=== PATIENT | male | born 1970 | race Asian ===

== ENCOUNTER 2021-08-04 08:48 | Emergency (ER) | payer MEDICAID, SELFPAY ==
--- NOTE | ~2021-08-04 | XR_ITS ---
EXAMINATION: CT BRAIN WITHOUT CONTRAST. LEFT SHOULDER. CHEST X-RAY. CLINICAL INFORMATION: Dizziness x 2 days. COMPARISON: None TECHNIQUE: 5 mm thin axial and reformatted 2 mm thin sagittal and coronal images of brain were obtained. Chest 2 views. Left shoulder 3 views. FINDINGS: BRAIN: There is no acute intra-axial, extra-axial bleed, masses or midline shift. There is a left anterior temporal lobe arachnoid cyst. The lateral ventricles are symmetrical in size and configuration without enlargement. There is no acute infarction evolution. No edema. Bone windows reveal no calvarial abnormality. No scalp soft tissue abnormality. Bilateral paranasal sinuses and mastoid air cells are well-aerated. CHEST: Both lungs are fairly well-expanded and clear of acute pneumonic process. Heart size and pulmonary vascularity is normal. No gross bony abnormality seen. LEFT SHOULDER: There is no visible acute fracture or dislocation. There is small enthesophyte along the lateral greater tuberosity. Mild reduction AC joint with periarticular spurring is noted. No soft tissue swelling seen. XR/XR shoulder LT min 2V IMPRESSION: No acute intracranial process seen except for left middle cranial fossa arachnoid cyst. Unremarkable chest x-ray. Mild arthritic changes left AC joint and enthesophyte along the lateral greater tuberosity.
--- NOTE | ~2021-08-04 | XR_ITS ---
EXAMINATION: CT BRAIN WITHOUT CONTRAST. LEFT SHOULDER. CHEST X-RAY. CLINICAL INFORMATION: Dizziness x 2 days. COMPARISON: None TECHNIQUE: 5 mm thin axial and reformatted 2 mm thin sagittal and coronal images of brain were obtained. Chest 2 views. Left shoulder 3 views. FINDINGS: BRAIN: There is no acute intra-axial, extra-axial bleed, masses or midline shift. There is a left anterior temporal lobe arachnoid cyst. The lateral ventricles are symmetrical in size and configuration without enlargement. There is no acute infarction evolution. No edema. Bone windows reveal no calvarial abnormality. No scalp soft tissue abnormality. Bilateral paranasal sinuses and mastoid air cells are well-aerated. CHEST: Both lungs are fairly well-expanded and clear of acute pneumonic process. Heart size and pulmonary vascularity is normal. No gross bony abnormality seen. LEFT SHOULDER: There is no visible acute fracture or dislocation. There is small enthesophyte along the lateral greater tuberosity. Mild reduction AC joint with periarticular spurring is noted. No soft tissue swelling seen. XR/XR chest 2V IMPRESSION: No acute intracranial process seen except for left middle cranial fossa arachnoid cyst. Unremarkable chest x-ray. Mild arthritic changes left AC joint and enthesophyte along the lateral greater tuberosity.
[2021-08-04 08:58] VITALS: BP 139/86; PULSE 60; RESP 18; TEMP 36.5; O2SAT 96
[2021-08-04 09:02] VITALS: BP 139/86; PULSE 61; RESP 16; TEMP 36.5; O2SAT 100; BMI 26.4
--- NOTE | 2021-08-04 09:28 | ECG_ITS ---
Test Reason : HEADACHE Blood Pressure : / mmHG Vent. Rate : 061 BPM Atrial Rate : 061 BPM P-R Int : 154 ms QRS Dur : 078 ms QT Int : 396 ms P-R-T Axes : 030 -08 039 degrees QTc Int : 398 ms Normal sinus rhythm Left axis deviation Otherwise normal ECG No previous ECGs available Referred By: Leann Chadwick Electronically Signed By:JACK BUTLER MD
--- NOTE | 2021-08-04 09:32 | ED_ITS ---
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 No nausea, vomiting, vision changes, ear pain or recent URI. No falls or injury. No weakness, numbness, tingling or incontinence. Patient tells me he did have radiation about 6 months ago in [place]. Also complaining of some left shoulder pain for several months. Patient tells me that he got a COVID vaccine on the same side and he feels like it may be related to that. No swelling, limited range of motion, redness or Related Data Previous Rx's Medication Instructions Recorded meclizine 25 mg tablet 25 mg PO TID PRN #14 tab 08/04/21 Allergies Allergy/AdvReac Type Severity Reaction Status Date / Time No Known Allergies Allergy Verified 08/04/21 09:28 Review of Systems Review of Systems: Yes all other systems are reviewed and are negative Constitutional: Constitutional: Reports no additional constitutional complaints, Denies body ache(s), Denies chills, Denies fever(s), Reports headache(s) and Denies weakness Eyes: Eyes: Reports no additional eye complaints and Denies change in vision ENT: Reports system reviewed and no additional complaints, except as documented, Reports dizziness, Reports headache(s), Denies nasal congestion, Denies nasal discharge and Denies neck pain Cardiovascular: Cardiovascular: Reports no additional cardiovascular complaints, Denies chest pain, Denies leg edema and Denies dyspnea Respiratory: Respiratory: Reports no additional respiratory complaints, Denies cough and Denies dyspnea Gastrointestinal: Gastrointestinal: Reports no additional gastrointestinal complaints, Denies abdominal pain, Denies diarrhea, Denies nausea and Denies vomiting Genitourinary: Genitourinary: Denies urinary incontinence Musculoskeletal: Musculoskeletal: Reports no additional musculoskeletal complaints, Denies back pain, Denies arthralgias, Denies joint swelling, Denies neck pain, Denies numbness and Denies tingling Integumentary/Breasts: Skin/Breast: Reports system reviewed and no additional complaints, except as docu and Denies rash Neurologic: Reports system reviewed and no additional complaints, except as documented, Denies Abnormal speech present, Reports dizziness, Reports headache(s), Denies numbness, Denies tingling and Denies weakness PMFSH Past Medical History Attestation statement: The following information was validated with the patient. Source: old records reviewed and nursing notes reviewed Medical History Throat cancer Social History Social History Advance Directives: No Advance Directives Information Provided: Yes Physical Exam Vital Signs: Vital Signs: Last Vital Signs Temp 97.7 F 08/04/21 09:02 Pulse 61 08/04/21 09:02 Resp 16 08/04/21 09:02 BP 139/86 08/04/21 09:02 Pulse Ox 100 08/04/21 09:02 Body Mass Index 26.4 Const: General: cooperative, healthy appearing, comfortable and no acute distress Orientation/consciousness: patient oriented x3 Limitations: no limitations HENMT: Head: Yes normal to inspection Ears: hearing grossly normal bilaterally and TM's normal bilaterally General nose exam: Normal external nose present Face and sinus: Yes normal facial exam Mouth: Normal oral and palatal mucosa present Throat: Yes posterior oropharynx normal, Yes tonsils normal and Yes uvula midline Eyes: General: appearance normal, both eyes and all related structures Pupils: Equal, round and reactive pupils present Neck: Neck: Yes normal visual inspection, Yes full ROM, Yes no lymphadenopathy and Yes no meningeal signs Chest: Chest palpation & inspection: normal inspection of the chest Resp: Effort & Inspection: normal respiratory effort Auscultation: clear to auscultation bilaterally Cardio: Rate: regular rate Rhythm: regular rhythm Peripheral pulses: Peripheral pulses 2+ throughout GI: Inspection: Yes normal to inspection Palpation (GI): Soft to palpation and nontender Auscultation: normal bowel sounds Back/Spine/Pelvis: Thoracic/Lumbar Spine: thoracic and lumbar spine normal to inspection Skin: General skin exam: no rashes or lesions noted Neuro: General: patient oriented x3, no meningeal signs, no focal motor deficits and normal sensation to monofilament Cranial nerves: Yes CN's II-XII intact bilaterally, Yes Equal, round and reactive pupils present, Yes Bilaterally intact EOM present, Yes Nystagmus not present, Yes Normal facial strength present and Yes Midline tongue present Cognition (Neuro): normal cognition Speech: No Abnormal speech present Gait exam (Neuro): Normal gait present Motor exam (neuro): 5/5 motor strength present throughout Sensory Exam: Normal double simultaneous stimulation for sensation Deep tendon reflexes (DTR's): Right patellar reflex intensity grade: 2+ and Left patellar reflex intensity grade: 2+ Coordination: [id number] test normal, [id number] test normal and tandem gait normal Extrem: Other: Tenderness to the left proximal humerus which is worsened with abduction of the arm. No warmth, redness with full range of motion of the joint General: Yes normal to inspection, Yes no pedal edema and Yes no calf tenderness NIH Stroke Scale Internal: Initial- Upon Arrival Level of Consciousness: Alert Level of Consciousness Questions: Answers both questions correctly Level of Consciousness Commands: Performs both tasks correctly Best Gaze: Normal Visual: No visual loss Facial Palsy: Normal Motor Arm (Right): No drift Motor Arm (Left): No drift Motor Leg (Right): No drift Motor Leg (Left): No drift Limb Ataxia: Absent Sensory: Normal Best Language: No aphasia Dysarthia: Normal Extinction and Inattention: No abnormality Score: 0 Course Course Course Narrative: 50 yo male with with a past medical history of larynx cancer status post radiation about 6 months ago in [place] here with complaints of feeling of the room spinning with a generalized headache for 2 days. Vitals are stable on arrival. Normal neuro exam. ? Vertigo. Due to history of cancer will check CT head, labs, EKG, orthostatics. Give p.o. meclizine and reassess 1159-labs unremarkable.. CT head normal. EKG shows no ischemic changes. Patient feels all symptoms are resolved after receiving a dose of meclizine and being monitored for 1 hour in the emergency department. Likely vertigo. 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 Reviewed worrisome signs and symptoms of when to return to the emergency department. Comfortable discharge home. MDM - Headache MDM Narrative Medical decision making narrative: Vertigo, cerebellar infarct, ich Medical Records Attestation: I reviewed the patient's medical records. Lab Data Attestation: I reviewed the patient's lab results. Result diagrams: 08/04/21 10:24 08/04/21 10:24 Labs: Lab Results 08/04/21 08/04/21 08/04/21 Range/Units 10:24 10:24 10:24 WBC 3.3 L (4.8-10.8) X10*3/uL RBC 6.83 H (4.60-5.80) X10*6/uL Hgb 12.7 L (14.0-18.0) g/dl Hct 41.3 L (42-52) % MCV 60.5 L (80-98) fL MCH 18.6 L (27.0-33.0) pg MCHC 30.8 L (31.0-36.0) g/dl RDW 17.5 H (11.0-16.0) % Plt Count 250 (160-400) X10*3/uL MPV 9.7 (9.4-12.4) fL Immature Gran % (Auto) 0.3 (0.0-0.4) % Neut % (Auto) 54.7 (45-73) % Lymph % (Auto) 32.4 (20-40) % [place] % (Auto) 9.2 (2-11) % Eos % (Auto) 2.8 (0-4) % Baso % (Auto) 0.6 (0-2) % Lymph # (Auto) 1.1 L (1.2-4.9) X10*3/uL [place] # (Auto) 0.3 (0.1-1.2) X10*3/uL Eos # (Auto) 0.1 (0.0-0.4) X10*3/uL Baso # (Auto) 0.0 (0.0-0.2) X10*3/uL Abs Immat Gran (auto) 0.01 (0.00-0.03) X10*3/uL Absolute Neuts (auto) 1.8 L (2.0-8.3) X10*3/uL Absolute Nucleated RBC 0.000 (0.0-0.012) X10*3/uL Nucleated RBC % (auto) 0.0 (0.0-0.2) /100WBC Sodium 135 (135-145) mmol/L Potassium 4.1 (3.3-5.1) mmol/L Chloride 102 (96-108) mmol/L Carbon Dioxide 29 (22-29) mmol/L Anion Gap 8 L (12-20) BUN 11 (9-16) mg/dL Creatinine 0.93 (0.5-1.4) mg/dL Estim Creat Clear Calc 89.8 Estimated GFR > 60 Random Glucose 256 H (60-115) mg/dL Calcium 8.9 (8.4-10.2) mg/dL Magnesium 2.0 (1.6-2.6) mg/dL Total Bilirubin 0.7 (0.0-1.0) mg/dL Direct Bilirubin 0.3 (0.0-0.5) mg/dL AST 12 (5-37) U/L ALT 17 (0-40) U/L Alkaline Phosphatase 57 (39-117) U/L Troponin I High Sens < 3.5 (<3.5-35.0) ng/L Total Protein 7.3 (6.5-8.0) g/dL Albumin 4.3 (3.5-5.0) g/dL Imaging Data CT scan - head: Attestation: I personally reviewed and interpreted this imaging study as follows: Radiologist's impression: BRAIN: There is no acute intra-axial, extra- axial bleed, masses or midline shift. There is a left anterior temporal lobe arachnoid cyst. The lateral ventricles are symmetrical in size and configuration without enlargement. There is no acute infarction evolution. No edema. Bone windows reveal no calvarial abnormality. No scalp soft tissue abnormality. Bilateral paranasal sinuses and mastoid air cells are well-aerated. Chest x-ray: Attestation: I personally reviewed and interpreted this imaging study as follows: Radiologist's impression: CHEST: Both lungs are fairly well-expanded and clear of acute pneumonic process. Heart size and pulmonary vascularity is normal. No gross bony abnormality seen. left shoulder: Attestation: I personally reviewed and interpreted this imaging study as follows: Radiologist's impression: LEFT SHOULDER: There is no visible acute fracture or dislocation. There is small enthesophyte along the lateral greater tuberosity. Mild reduction AC joint with periarticular spurring is noted. No soft tissue swelling seen. ECG Data Attestation: I personally reviewed and interpreted this ECG as follows: ECG interpretation date: 08/04/21 ECG interpretation time: 09:56 Interpretation: Sinus rhythm with a rate of 61, normal FL, normal QRS, normal QT Discharge Plan Discharge Clinical Impression: Vertigo, Arthritis of shoulder region, left Patient Disposition: Home, Self-Care Instructions: Vertigo (ED), Arthritis (ED) Additional Instructions: Blood work and CT scan normal You received your 1st dose of meclizine in the emergency department with improvement Follow-up with your primary care Prescriptions: New meclizine 25 mg tablet 25 mg PO TID PRN (Reason: dizziness) Qty: 14 RF: 0 Interventions: ED Discharge Assessment Last Done: 08/04/21 12:16 Discharge Date/Time: 08/04/21 12:16
[2021-08-04 10:29] LABS: MANUAL DIFF FLAG NO
[2021-08-04 10:31] LABS: Basophils Percent Auto 0.6 % (0-2); Eosinophils Absolute Auto 0.1 X10*3/uL (0.0-0.4); Eosinophils Percent Auto 2.8 % (0-4); Hematocrit 41.3 % (42-52); Hemoglobin 12.7 g/dl (14.0-18.0); Imm Gran Abs Auto 0.01 X10*3/uL (0.00-0.03); Imm Gran Pct Auto 0.3 % (0.0-0.4); Lymphocytes Absolute Auto 1.1 X10*3/uL (1.2-4.9); Lymphocytes Percent Auto 32.4 % (20-40); Mean Corpuscular HGB Conc 30.8 g/dl (31.0-36.0); Mean Corpuscular Hemoglobin 18.6 pg (27.0-33.0); Mean Platelet Volume 9.7 fL (9.4-12.4); Monocytes Absolute Auto 0.3 X10*3/uL (0.1-1.2); Monocytes Percent Auto 9.2 % (2-11); Neutrophils Absolute Auto 1.8 X10*3/uL (2.0-8.3); Neutrophils Percent Auto 54.7 % (45-73); Platelet Count 250 X10*3/uL (160-400); Red Blood Count 6.83 X10*6/uL (4.60-5.80); Red Cell Distribution Width 17.5 % (11.0-16.0); White Blood Count 3.3 X10*3/uL (4.8-10.8)
[2021-08-04] MEDS: Meclizine HCl 25 MG TABLET 50 MG PO (10:31)
[2021-08-04 10:43] LABS: Mean Corpuscular Volume 60.5 fL (80-98)
[2021-08-04 10:50] LABS: Alanine Aminotransferase 17 U/L (0-40); Albumin Level 4.3 g/dL (3.5-5.0); Alkaline Phosphatase 57 U/L (39-117); Anion Gap 8 (12-20); Aspartate Amino Transferase 12 U/L (5-37); Bilirubin Direct 0.3 mg/dL (0.0-0.5); Bilirubin Total 0.7 mg/dL (0.0-1.0); Blood Urea Nitrogen 11 mg/dL (9-16); Calcium 8.9 mg/dL (8.4-10.2); Carbon Dioxide 29 mmol/L (22-29); Chloride 102 mmol/L (96-108); Creatinine Clr Calc Pharmacy 89.8; Estimated Glomerular Filt Rate > 60; Glucose Random 256 mg/dL (60-115); Potassium 4.1 mmol/L (3.3-5.1); Sodium 135 mmol/L (135-145); Total Protein 7.3 g/dL (6.5-8.0)
[2021-08-04 10:51] LABS: Troponin-I High Sensitivity < 3.5 ng/L (<3.5-35.0)
== END 2021-08-04 12:16 | disposition home or self-care (01) ==
LOC: HO.ED 12:08
PROVIDERS: Nurse Practitioner Family; Emergency Provider Emergency Medicine
DX: R42 Dizziness and giddiness (principal); M19.012 Primary osteoarthritis, left shoulder; Z85.21 Personal history of malignant neoplasm of larynx; Z92.3 Personal history of irradiation
CPT/HCPCS: 36415; 70450; 71046; 73030; 80048; 80076; 83735; 84484; 85025; 93005; 99283; 99284